=== PATIENT | male | born 1970 | race Caucasian/White ===

== ENCOUNTER 2016-11-27 13:42 | Emergency (ER) | payer OTHER ==
[~2016-11-27] VITALS: Ht 185.4 cm; Wt 108.9 kg
[2016-11-27 17:20] VITALS: BP 148/79
== END 2016-11-27 17:20 | disposition home or self-care (01) ==
LOC: ED 13:42
DX: M17.11 Unilateral primary osteoarthritis, right knee (principal); I10 Essential (primary) hypertension
CPT/HCPCS: J1885; J3010; Q0162

== ENCOUNTER 2020-08-07 17:36 | Emergency (ER) | payer OTHER ==
[~2020-08-07] VITALS: Ht 185.4 cm; Wt 109.3 kg
[2020-08-07 18:12] VITALS: Ht 185.4 cm; Wt 109.3 kg
[2020-08-07 18:48] LABS: BASOPHIL % 1.2 % (0.2-1.5); PLATELET COUNT 251 x10^3mcL (152-348); RED CELL DISTRIBUTION WIDTH 13.5 % (12.1-16.2)
[2020-08-07 20:27] VITALS: BP 208/119
[2020-08-07 20:31] LABS: CALCIUM 9.1 mg/dL (8.5-10.1); CARBON DIOXIDE 27.7 mmol/L (21-32); CHLORIDE SERUM 105 mmol/L (98-107); CREATININE SERUM 1.1 mg/dL (0.7-1.3); GFR1 > 60 mL/min; GLUCOSE SERUM 115 mg/dL (74-106); POTASSIUM SERUM 3.4 mmol/L (3.5-5.1); SODIUM SERUM 143 mmol/L (136-145)
== END 2020-08-07 20:58 | disposition home or self-care (01) ==
LOC: ED 17:36
PROVIDERS: Emergency Medicine
DX: I20.0 Unstable angina (principal); I16.0 Hypertensive urgency

== ENCOUNTER 2020-08-26 17:48 | Emergency (ER) | payer OTHER ==
[~2020-08-26] VITALS: Ht 185.4 cm; Wt 108.9 kg
[2020-08-26 18:02] VITALS: Ht 185.4 cm; Wt 108.9 kg
[2020-08-26 20:18] VITALS: BP 195/122
== END 2020-08-26 20:18 | disposition home or self-care (01) ==
LOC: ED 17:48
DX: S61.512A Laceration without foreign body of left wrist, initial encounter (principal); S51.012A Laceration without foreign body of left elbow, initial encounter; W20.8XXA Other cause of strike by thrown, projected or falling object, initial encounter; Y93.89 Activity, other specified; Y92.89 Other specified places as the place of occurrence of the external cause; Y99.0 Civilian activity done for income or pay
CPT/HCPCS: J1885; J2001